=== PATIENT | female | born 1995 | race Caucasian/White ===

== ENCOUNTER 2016-11-13 16:33 | Emergency (ER) | payer OTHER | END 2016-11-13 19:05 | disposition home or self-care (01) | LOC: ER 16:33 | DX: S20.212A Contusion of left front wall of thorax, initial encounter (principal); M25.552 Pain in left hip; V49.9XXA Car occupant (driver) (passenger) injured in unspecified traffic accident, initial encounter | CPT/HCPCS: 36415; 73502-LT; 73552-LT; 96360; Q9967 ==